=== PATIENT | female | born 1990 | race Caucasian/White ===

== ENCOUNTER 2018-11-26 11:56 | Emergency (ER) | payer MEDICAID ==
[~2018-11-26] VITALS: Ht 167.6 cm; Wt 77.0 kg
[2018-11-26 14:54] VITALS: BP 101/62
== END 2018-11-26 14:49 | disposition home or self-care (01) ==
LOC: ER 11:57
DX: R20.2 Paresthesia of skin (principal)
CPT/HCPCS: 70450; 93005; 99284